=== PATIENT | female | born 1965 | race Caucasian/White ===

== ENCOUNTER 2022-08-31 16:06 | Emergency (ER) | payer MEDICAID, SELFPAY ==
[2022-08-31 16:17] VITALS: BP 136/81; PULSE 105; RESP 20; TEMP 36.7; O2SAT 98; BMI 31.8
--- NOTE | 2022-08-31 16:31 | HMH.EDGENADL ---
Discharge Plan Disposition Patient Disposition: Home, Self-Care Condition: Fair Prescriptions Prescriptions: New diclofenac sodium [Voltaren Arthritis Pain] 1 % gel 2 g topical QID Qty: 100 0RF Rx Instructions: apply to back Referrals Follow up/Referrals: Elvis Cueva MD [Primary Care Provider] - See instructions Clinical Impressions Clinical Impression: Chronic back pain Instructions Patient Instructions: DI for Low Back Pain Print Language Print Language: Italian Discharge ED Provider: Fredi Storey Adult HPI General Chief complaint: Back Pain/Injury Stated complaint: back pain Time Seen by Provider: 08/31/22 16:31 Mode of Arrival: EMS Source of Information: Patient Limitations: No Limitations Description of Symptoms (Recalled from ER Triage Doc. by RN): Patient reports right sided back pain. Patient reports she has had the pain since June. Patient denies any known injury. History of Present Illness HPI narrative: Patient reports right lumbar back pain since June. The patient reports that she has had this once in the past. She reports a history of degenerative disc disease. complaint: Back pain Onset (ago): month(s) (2) Radiation: non-radiation Severity: moderate Quality: dull Relieving factors: none Exacerbating factors: movement Associated symptoms: negative nausea/vomiting Related Data Previous Rx's Medication Instructions Recorded diclofenac sodium 1 % topical gel 2 g topical QID #100 grams 08/31/22 (Voltaren Arthritis Pain) Allergies Allergy/AdvReac Type Severity Reaction Status Date / Time Sulfa (Sulfonamide AdvReac Verified 08/31/22 17:09 Antibiotics) [facility] Disclaimer: The information contained in this section may have been updated after the patient was seen, as this information can be updated by other users. Social History Smoking Status: Never smoker alcohol intake: former current occupational status: unemployed Travel in the last 8 weeks: None ROS Obtained: Yes Systems reviewed as appropriate & no additional complaints except as documented Musculoskeletal Musculoskeletal: Reports back pain Physical Exam General General appearance: alert and in no apparent distress Eye Eye exam: Present EOMI ENT ENT exam: Present normal exam Respiratory Respiratory exam: Present normal lung sounds bilaterally; Absent respiratory distress Cardiovascular Cardiovascular exam: Present other (No edema) Neurological Exam Neurological exam: Present alert; Absent motor sensory deficit Psychiatric Psychiatric exam: Present normal affect and normal mood Skin Skin exam: Present warm and dry Medical Decision Making Ney Inquiry Pt receiving controlled substance: No Vital Signs: 08/31/22 16:17 08/31/22 16:43 08/31/22 17:36 Temperature 98.0 F 98.3 F Temperature Source Oral Oral Pulse Rate 96 H 92 H Pulse Rate [Right Brachial] 105 H Respiratory Rate 20 20 18 Blood Pressure 135/81 128/77 Blood Pressure [Right Arm] 136/81 Blood Pressure Mean 98 Blood Pressure Mean [Right Arm] 99 Blood Pressure Source Automatic Cuff Blood Pressure Source [Right Arm] Automatic Cuff Blood Pressure Position Sitting Blood Pressure Position [Right Arm] Sitting 02 Sat by Pulse Oximetry 98 94 L Oxygen Delivery Method Room Air Room Air Lab Data Lab results reviewed: Yes I reviewed the patient's lab results. Lab Results 08/31/22 16:52: Urine Color Yellow, Urine Appearance Clear, Urine pH 6.5, Ur Specific [place] <= 1.005, Urine Protein Negative, Urine Glucose (UA) Negative, Urine Ketones Negative, Urine Blood Negative, Urine Nitrate Negative, Urine Bilirubin Negative, Urine Urobilinogen 0.2, Ur Leukocyte Esterase Negative, Urine RBC None, Urine WBC None, Ur Squamous Epith Cells Occasional, Urine Bacteria None Orders (Tests/Meds): ED MEDICATIONS Discontinued Medications Generic Name Dose Route Start Last Admin
[2022-08-31 16:43] VITALS: BP 135/81; PULSE 96; RESP 20; O2SAT 94
--- NOTE | 2022-08-31 16:56 | PC.NURSE ---
ROUNDED ON PT SHE JUST ASKED FOR ME TO TELL ER SHE WANTED TO SPEAK WITH HIM BEFORE DISCHARGE
[2022-08-31 16:58] LABS: Microscopic, Urine URINE MICROSCOPIC (MICROSCOPIC)
[2022-08-31 17:01] LABS: Appearance,Urine CLEAR (Clear); Bilirubin,Urine Negative (Negative); Blood, Urine Negative (Negative); Color,Urine YELLOW (Yellow); Glucose,Urine (UA) Negative (Negative); Ketones,Urine Negative (Negative); Leukocyte Esterase,Urine Negative (Negative); Nitrate,Urine Negative (Negative); PH,Urine 6.5 (5.0-8.5); Protein,Urine Negative (Negative); Specific Gravity, Urine <= 1.005 (1.005-1.030); Urobilinogen,Urine 0.2 EU/dl (0.2)
[2022-08-31 17:26] LABS: Squamous Epithelial Cell,Urine Occasional #/hpf (0-5)
[2022-08-31 17:36] VITALS: BP 128/77; PULSE 92; RESP 18; TEMP 36.8; O2SAT 99
--- NOTE | 2022-08-31 17:37 | PC.NURSE ---
called [facility] for transport no answer
== END 2022-08-31 17:40 | disposition home or self-care (01) ==
PROVIDERS: Emergency Provider Emergency Medicine; PCP Emergency Medicine
DX: M54.50 Low back pain, unspecified (principal); M51.9 Unspecified thoracic, thoracolumbar and lumbosacral intervertebral disc disorder
CPT/HCPCS: 81001; 99283; 99284

== ENCOUNTER 2022-11-10 20:42 | Emergency (ER) | payer MEDICAID, SELFPAY ==
[2022-11-10 20:42] VITALS: BP 130/79; PULSE 97; RESP 19; TEMP 36.8; O2SAT 96; BMI 32.1
--- NOTE | 2022-11-10 20:43 | ECG_ITS ---
APPROVED REPORT Exam: Resting ECG HR:96 bpm ECG Measurements Heart Rate 96 AXES OR 145 P 65 QRSd 74 QRS 34 QT 315 T 71 QTc 369 Conclusion SINUS RHYTHM Late R wave progression ABNORMAL ECG UNCONFIRMED REPORT Electronically signed by : Bernardino Lobato MD 11/11/2022 19:57:26
--- NOTE | 2022-11-10 20:48 | XR_ITS ---
PROCEDURE INFORMATION: Exam: XR Chest Exam date and time: 11/10/2022 9:20 PM Age: 57 years old Clinical indication: Sternal or substernal pain; Additional info: Chest pain TECHNIQUE: Imaging protocol: Radiologic exam of the chest. Views: 1 view. COMPARISON: No relevant prior studies available. FINDINGS: Lungs: Unremarkable. No consolidation. Pleural spaces: Unremarkable. No pleural effusion. No pneumothorax. Heart/Mediastinum: Unremarkable. No cardiomegaly. Bones/joints: Unremarkable. IMPRESSION: No acute findings.
[2022-11-10 20:56] LABS: Basophils # 0.1 K/mm3 (0-0.2); Basophils % 0.8 % (0.1-2.0); Eosinophils # 0.5 K/mm3 (0.0-0.4); Eosinophils % 4.5 % (0.1-12.0); Hematocrit 45.1 % (37.0-47.0); Hemoglobin 14.4 g/dL (12.2-16.2); Lymphocytes # 4.9 K/mm3 (0.7-4.5); Lymphocytes % 44.5 % (10-50); Mean Corpuscular HGB Conc 31.9 g/dL (31.8-35.4); Mean Corpuscular Hemoglobin 30.5 pg (27.0-31.2); Mean Corpuscular Volume 95.6 fl (81-99); Mean Platelet Volume 8.2 fl (7.4-10.4); Monocytes # 0.7 K/mm3 (0.1-1.0); Monocytes % 6.3 % (1.7-9.3); Neutrophils # 4.8 K/mm3 (1.8-7.8); Neutrophils % 43.8 % (37.0-80.0); Platelet Count 247 K/mm3 (142-424); Red Blood Count 4.72 M/mm3 (4.20-5.40); White Blood Count 10.9 K/mm3 (4.8-10.8)
[2022-11-10 21:00] VITALS: BP 126/76; PULSE 89; RESP 25; O2SAT 94
[2022-11-10 21:04] LABS: Alanine Aminotransferase 23 U/L (12-78); Albumin Level 4.1 g/dl (3.5-5.0); Albumin/Globulin Ratio 1.2 (1.1-1.8); Alkaline Phosphatase 64 U/L (38-126); Anion Gap 11.6 mEq/L (5-15); Aspartate Amino Transferase 32 U/L (14-36); Bilirubin,Total 0.2 mg/dl (0.2-1.3); Blood Urea Nitrogen 25 mg/dl (7-17); Calcium 9.8 mg/dl (8.4-10.2); Carbon Dioxide 28 mmol/L (22.0-30.0); Chloride 102 mmol/L (98-107); Creatinine Clearance Estimated 51 mL/min (50-200); Estimated Glomerular Filt Rate 33 ml/min (>60); GFR (African American) 40 ML/MIN (>60); Globulin 3.5 g/dL (1.3-3.2); Glucose 123 mg/dl (74-100); Potassium 4.6 mmoL/L (3.5-5.1); Sodium 137 mmol/L (136-145); Total Protein,Serum 7.6 g/dl (6.3-8.2)
[2022-11-10 21:17] LABS: Troponin I < 0.01 ng/ml (0.00-0.034)
[2022-11-10 21:24] LABS: Microscopic, Urine URINE MICROSCOPIC (MICROSCOPIC)
[2022-11-10 21:26] LABS: Appearance,Urine CLEAR (Clear); Bilirubin,Urine Negative (Negative); Blood, Urine Negative (Negative); Color,Urine YELLOW (Yellow); Glucose,Urine (UA) Negative (Negative); Ketones,Urine Negative (Negative); Leukocyte Esterase,Urine Negative (Negative); Nitrate,Urine Negative (Negative); PH,Urine 6.5 (5.0-8.5); Protein,Urine Negative (Negative); Specific Gravity, Urine <= 1.005 (1.005-1.030); Urobilinogen,Urine 0.2 EU/dl (0.2)
[2022-11-10 21:30] VITALS: PULSE 88; RESP 24; O2SAT 95
[2022-11-10 21:35] LABS: Thyroid Stimulating Hormone 3.48 uIU/mL (0.465-4.68)
[2022-11-10 21:42] LABS: Squamous Epithelial Cell,Urine Occasional #/hpf (0-5)
[2022-11-10 21:45] VITALS: PULSE 86; RESP 23; O2SAT 95
--- NOTE | 2022-11-10 22:24 | PC.NURSE ---
patient requesting to leave
--- NOTE | 2022-11-10 22:29 | PC.NURSE ---
Patient states she is tired of waiting and ready to go back home. Patient denies wanting to stay for her continued workup. Patient denies any symptoms.
[2022-11-10 22:30] VITALS: BP 129/74; PULSE 89; RESP 19; TEMP 36.9; O2SAT 96
--- NOTE | 2022-11-10 22:33 | HMH.EDGENADL ---
Discharge Plan Disposition Patient Disposition: Left Against Medical Advice Prescriptions Prescriptions: No Action atorvastatin 80 mg Tablet 80 mg PO HS fluphenazine HCl 10 mg Tablet 10 mg PO BID docusate calcium 240 mg Capsule 240 mg PO HS olanzapine 5 mg Tablet 5 mg PO DAILY clopidogrel 75 mg Tablet 75 mg PO DAILY divalproex 500 mg Tablet,Delayed Release (Dr/Ec) 1,000 mg PO HS divalproex 500 mg Tablet,Delayed Release (Dr/Ec) 500 mg PO AM famotidine 20 mg Tablet 20 mg PO BID buspirone 10 mg Tablet 10 mg PO TID aspirin 81 mg Tablet,Chewable 81 mg PO DAILY mirtazapine 15 mg Tablet 15 mg PO HS fenofibrate 150 mg Capsule 150 mg PO DAILY Referrals Follow up/Referrals: Elvis Cueva MD [Primary Care Provider] - See instructions Clinical Impressions Clinical Impression: Left against medical advice, Acute exacerbation of chronic obstructive pulmonary disease (COPD), MORE (acute kidney injury) Discharge ED Provider: Yobani Vera General Adult HPI General Chief complaint: Chest Pain Stated complaint: CP Time Seen by Provider: 11/10/22 21:21 Mode of Arrival: EMS Source of Information: Patient and EMS Limitations: No Limitations Description of Symptoms (Recalled from ER Triage Doc. by RN): 57 F presents from [facility] via EMS with c/o mid sternal chest pain that has now resolved. Patient reports [place] and [place], which caused her chest pain. Patient reports this pain radiated to her back and caused her to be nauseated. Patient denies SOA, fever, or chills. History of Present Illness HPI narrative: 57-year-old female with history of COPD, currently smoking 1 pack/day, bipolar disorder, CAD, presenting with chest tightness. Patient states she was walking up a hill today when she felt short of breath. Stopped walking, felt better. No chest pain, nausea or vomiting, diaphoresis. Patient told triage nurse radiated to her back, patient states this is untrue and she did not mean that. Did not radiate to back, neck, arm, or anywhere else. Related Data Home Medications Medication Instructions Recorded Confirmed aspirin 81 mg chewable tablet 81 mg PO DAILY Heart Disease 11/10/22 11/10/22 atorvastatin 80 mg tablet 80 mg PO HS High Cholesterol 11/10/22 11/10/22 buspirone 10 mg tablet 10 mg PO TID Depression 11/10/22 11/10/22 clopidogrel 75 mg tablet 75 mg PO DAILY Antiplatelet 11/10/22 11/10/22 divalproex 500 mg tablet,delayed 1,000 mg PO HS Seizure 11/10/22 11/10/22 release divalproex 500 mg tablet,delayed 500 mg PO AM Seizure 11/10/22 11/10/22 release docusate calcium 240 mg capsule 240 mg PO HS Constipation 11/10/22 11/10/22 famotidine 20 mg tablet 20 mg PO BID Acid Reflux 11/10/22 11/10/22 fenofibrate 150 mg capsule 150 mg PO DAILY Hyperlipidemia 11/10/22 11/10/22 fluphenazine HCl 10 mg tablet 10 mg PO BID Schizophrenia 11/10/22 11/10/22 mirtazapine 15 mg tablet 15 mg PO HS Depression 11/10/22 11/10/22 olanzapine 5 mg tablet 5 mg PO DAILY Antipsychotic 11/10/22 11/10/22 Allergies Allergy/AdvReac Type Severity Reaction Status Date / Time carbamazepine Allergy Unknown Unknown Verified 11/10/22 21:02 allergy reaction codeine Allergy Unknown Unknown Verified 11/10/22 21:02 allergy reaction hydrocodone Allergy Unknown Unknown Verified 11/10/22 21:02 allergy reaction oxycodone Allergy Unknown Unknown Verified 11/10/22 21:02 allergy reaction promethazine Allergy Unknown Unknown Verified 11/10/22 21:02 allergy reaction propoxyphene Allergy Unknown Unknown Verified 11/10/22 21:02 allergy reaction PFSH PFSH Disclaimer: The information contained in this section may have been updated after the patient was seen, as this information can be updated by other users. Medical History Anxiety Bipolar 2 disorder, major depressive episode CAD (coronary artery
== END 2022-11-10 22:30 | disposition left against medical advice (07) ==
PROVIDERS: Emergency Provider Emergency Medicine; PCP Emergency Medicine
DX: R07.9 Chest pain, unspecified (principal); J44.1 Chronic obstructive pulmonary disease with (acute) exacerbation; N17.9 Acute kidney failure, unspecified; F41.9 Anxiety disorder, unspecified; F25.9 Schizoaffective disorder, unspecified; I25.10 Atherosclerotic heart disease of native coronary artery without angina pectoris; E78.5 Hyperlipidemia, unspecified; K21.9 Gastro-esophageal reflux disease without esophagitis; F17.200 Nicotine dependence, unspecified, uncomplicated
CPT/HCPCS: 71045; 80053; 81001; 83880; 84436; 84443; 84484; 85025; 93005; 96360; 99285

== ENCOUNTER 2023-01-01 00:48 | Emergency (ER) | payer MEDICAID, SELFPAY ==
[2023-01-01 00:48] VITALS: BP 122/87; PULSE 103; RESP 16; TEMP 36.7; O2SAT 95; BMI 35.9
--- NOTE | 2023-01-01 00:59 | HMH.EDGENADL ---
Discharge Plan Disposition Patient Disposition: Home, Self-Care Prescriptions Prescriptions: No Action atorvastatin 80 mg Tablet 80 mg PO HS fluphenazine HCl 10 mg Tablet 10 mg PO BID docusate calcium 240 mg Capsule 240 mg PO HS olanzapine 5 mg Tablet 5 mg PO DAILY clopidogrel 75 mg Tablet 75 mg PO DAILY divalproex 500 mg Tablet,Delayed Release (Dr/Ec) 1,000 mg PO HS divalproex 500 mg Tablet,Delayed Release (Dr/Ec) 500 mg PO AM famotidine 20 mg Tablet 20 mg PO BID buspirone 10 mg Tablet 10 mg PO TID aspirin 81 mg Tablet,Chewable 81 mg PO DAILY mirtazapine 15 mg Tablet 15 mg PO HS fenofibrate 150 mg Capsule 150 mg PO DAILY Referrals Follow up/Referrals: Provider,Referral, MD [Referring] - See instructions Activity Restrictions/Add. Instructions Additional Instructions/Restrictions: Please follow-up with your primary care provider. Please return to the emergency department if you develop any new or worsening symptoms or become concerned for your health. Clinical Impressions Clinical Impression: Folliculitis Instructions Patient Instructions: DI for Laceration Repair Discharge ED Provider: Usman Geiger General Adult HPI General Chief complaint: Wound/Laceration Stated complaint: groin pain Time Seen by Provider: 01/01/23 00:50 History of Present Illness HPI narrative: 57-year-old female, history as reported below, resident at [facility], presents with concern for soft tissue issue in her left groin. She reports that she started having pain and tenderness in her left groin yesterday. She reports that she cleaned it heavily in the shower earlier today. She reports that she has had some worsening pain which is causing her to present. Also reports some urinary urgency and mild suprapubic pelvic pain. Denies any fever, denies any dysuria. Orts she is concerned for UTI. Related Data Home Medications Medication Instructions Recorded Confirmed aspirin 81 mg chewable tablet 81 mg PO DAILY Heart Disease 11/10/22 11/10/22 atorvastatin 80 mg tablet 80 mg PO HS High Cholesterol 11/10/22 11/10/22 buspirone 10 mg tablet 10 mg PO TID Depression 11/10/22 11/10/22 clopidogrel 75 mg tablet 75 mg PO DAILY Antiplatelet 11/10/22 11/10/22 divalproex 500 mg tablet,delayed 1,000 mg PO HS Seizure 11/10/22 11/10/22 release divalproex 500 mg tablet,delayed 500 mg PO AM Seizure 11/10/22 11/10/22 release docusate calcium 240 mg capsule 240 mg PO HS Constipation 11/10/22 11/10/22 famotidine 20 mg tablet 20 mg PO BID Acid Reflux 11/10/22 11/10/22 fenofibrate 150 mg capsule 150 mg PO DAILY Hyperlipidemia 11/10/22 11/10/22 fluphenazine HCl 10 mg tablet 10 mg PO BID Schizophrenia 11/10/22 11/10/22 mirtazapine 15 mg tablet 15 mg PO HS Depression 11/10/22 11/10/22 olanzapine 5 mg tablet 5 mg PO DAILY Antipsychotic 11/10/22 11/10/22 Allergies Allergy/AdvReac Type Severity Reaction Status Date / Time carbamazepine Allergy Unknown Unknown Verified 11/10/22 21:02 allergy reaction codeine Allergy Unknown Unknown Verified 11/10/22 21:02 allergy reaction hydrocodone Allergy Unknown Unknown Verified 11/10/22 21:02 allergy reaction oxycodone Allergy Unknown Unknown Verified 11/10/22 21:02 allergy reaction promethazine Allergy Unknown Unknown Verified 11/10/22 21:02 allergy reaction propoxyphene Allergy Unknown Unknown Verified 11/10/22 21:02 allergy reaction PFSH PFSH Disclaimer: The information contained in this section may have been updated after the patient was seen, as this information can be updated by other users. Medical History Anxiety Bipolar 2 disorder, major depressive episode CAD (coronary artery disease) Constipation Depression GERD without esophagitis Hypercholesteremia Hyperlipidemia Schizo affective schizophrenia Smoker Surgical History (Updated 10/24
[2023-01-01 01:02] LABS: Appearance,Urine CLEAR (Clear); Bilirubin,Urine Negative (Negative); Blood, Urine Negative (Negative); Color,Urine YELLOW (Yellow); Glucose,Urine (UA) Negative (Negative); Ketones,Urine Negative (Negative); Leukocyte Esterase,Urine Negative (Negative); Nitrate,Urine Negative (Negative); PH,Urine 6.5 (5.0-8.5); Protein,Urine Negative (Negative); Specific Gravity, Urine <= 1.005 (1.005-1.030); Urobilinogen,Urine 0.2 EU/dl (0.2)
[2023-01-01 01:03] LABS: Microscopic, Urine URINE MICROSCOPIC (MICROSCOPIC)
[2023-01-01 01:18] LABS: Bacteria,Urine Trace /lpf; WBC,Urine Occasional #/hpf (0-3)
[2023-01-01 02:25] VITALS: BP 122/87; PULSE 103; RESP 16; TEMP 36.9; O2SAT 95
== END 2023-01-01 02:27 | disposition home or self-care (01) ==
PROVIDERS: Emergency Provider Emergency Medicine; PCP Emergency Medicine
DX: L73.9 Follicular disorder, unspecified (principal); R10.2 Pelvic and perineal pain; F17.210 Nicotine dependence, cigarettes, uncomplicated; I25.10 Atherosclerotic heart disease of native coronary artery without angina pectoris; K21.9 Gastro-esophageal reflux disease without esophagitis; E78.5 Hyperlipidemia, unspecified; F31.81 Bipolar II disorder; F25.8 Other schizoaffective disorders
CPT/HCPCS: 81001; 99283

== ENCOUNTER 2023-01-30 01:32 | Emergency (ER) | payer MEDICAID, SELFPAY ==
[2023-01-30] VITALS (13 sets, daily range): BP systolic 108–132; BP diastolic 55–89; PULSE 78–95; RESP 18–20; TEMP 36.7; O2SAT 92–98; BMI 35.9
--- NOTE | 2023-01-30 01:35 | ECG_ITS ---
APPROVED REPORT Exam: Resting ECG HR:95 bpm ECG Measurements Heart Rate 95 AXES OR 146 P 67 QRSd 77 QRS 18 QT 326 T 67 QTc 378 Conclusion SINUS RHYTHM NORMAL ECG UNCONFIRMED REPORT Electronically signed by : Bernardino Lobato MD 01/30/2023 08:26:36
--- NOTE | 2023-01-30 01:35 | XR_ITS ---
PROCEDURE INFORMATION: Exam: XR Chest Exam date and time: 01/30/2023 2:01 AM Age: 57 years old Clinical indication: Sternal or substernal pain; Additional info: Cp TECHNIQUE: Imaging protocol: Radiologic exam of the chest. Views: 1 view. COMPARISON: CR XR CHEST PORTABLE 11/10/2022 9:20 PM FINDINGS: Lungs: No evidence of acute pulmonary disease or infiltrates; lung sales appear clear. Pleural spaces: No evidence of pleural effusion, pneumothorax, or pleural thickening in the visualized pleural spaces. Heart/Mediastinum: No evidence of mediastinal widening or cardiac silhouette enlargement; the mediastinum and heart appear within normal limits for contour and size. Diaphragm: There is elevation of the right hemidiaphragm. Bones/joints: No evidence of acute osseous abnormalities within the visualized portions of the thoracic spine and ribs. Osseous structures appear appropriate for patient age. IMPRESSION: No dense parenchymal consolidation, pleural effusion, or pneumothorax.
--- NOTE | 2023-01-30 01:36 | HMH.EDGENADL ---
Discharge Plan Disposition Patient Disposition: Home, Self-Care Condition: Good Chief Complaint: Chest Pain Prescriptions Prescriptions: No Action atorvastatin 80 mg Tablet 80 mg PO HS fluphenazine HCl 10 mg Tablet 10 mg PO BID docusate calcium 240 mg Capsule 240 mg PO HS olanzapine 5 mg Tablet 5 mg PO DAILY clopidogrel 75 mg Tablet 75 mg PO DAILY divalproex 500 mg Tablet,Delayed Release (Dr/Ec) 1,000 mg PO HS divalproex 500 mg Tablet,Delayed Release (Dr/Ec) 500 mg PO AM famotidine 20 mg Tablet 20 mg PO BID buspirone 10 mg Tablet 10 mg PO TID aspirin 81 mg Tablet,Chewable 81 mg PO DAILY mirtazapine 15 mg Tablet 15 mg PO HS fenofibrate 150 mg Capsule 150 mg PO DAILY Referrals Follow up/Referrals: Provider,Referral, MD [Primary Care Provider] - See instructions Clinical Impressions Clinical Impression: Chest pain Instructions Patient Instructions: DI for Atypical Chest Pain Discharge ED Provider: Thee Beltran General Adult HPI General Chief complaint: Chest Pain Stated complaint: chest pain Time Seen by Provider: 01/30/23 01:38 History of Present Illness HPI narrative: Patient has a PMHx significant for CAD status post PCI at on Plavix, anxiety, depression, COPD who presents to the ED with complaints of chest pain. [facility], apparently when the patient laid down to go to bed, she started having chest pain. Patient notes that when she sat up in bed the chest pain went away. Patient notes that when she laid back down, she had recurrence of chest pain and thus decided to alert staff with subsequently called EMS. Patient notes a significant cardiac history and was supposed get a heart cath done, but has never had follow-up with cardiology ever since she apparently moved. Patient denies any chest pain at this time. Related Data Home Medications Medication Instructions Recorded Confirmed aspirin 81 mg chewable tablet 81 mg PO DAILY Heart Disease 11/10/22 11/10/22 atorvastatin 80 mg tablet 80 mg PO HS High Cholesterol 11/10/22 11/10/22 buspirone 10 mg tablet 10 mg PO TID Depression 11/10/22 11/10/22 clopidogrel 75 mg tablet 75 mg PO DAILY Antiplatelet 11/10/22 11/10/22 divalproex 500 mg tablet,delayed 1,000 mg PO HS Seizure 11/10/22 11/10/22 release divalproex 500 mg tablet,delayed 500 mg PO AM Seizure 11/10/22 11/10/22 release docusate calcium 240 mg capsule 240 mg PO HS Constipation 11/10/22 11/10/22 famotidine 20 mg tablet 20 mg PO BID Acid Reflux 11/10/22 11/10/22 fenofibrate 150 mg capsule 150 mg PO DAILY Hyperlipidemia 11/10/22 11/10/22 fluphenazine HCl 10 mg tablet 10 mg PO BID Schizophrenia 11/10/22 11/10/22 mirtazapine 15 mg tablet 15 mg PO HS Depression 11/10/22 11/10/22 olanzapine 5 mg tablet 5 mg PO DAILY Antipsychotic 11/10/22 11/10/22 Allergies Allergy/AdvReac Type Severity Reaction Status Date / Time carbamazepine Allergy Unknown Unknown Verified 11/10/22 21:02 allergy reaction codeine Allergy Unknown Unknown Verified 11/10/22 21:02 allergy reaction hydrocodone Allergy Unknown Unknown Verified 11/10/22 21:02 allergy reaction oxycodone Allergy Unknown Unknown Verified 11/10/22 21:02 allergy reaction promethazine Allergy Unknown Unknown Verified 11/10/22 21:02 allergy reaction propoxyphene Allergy Unknown Unknown Verified 11/10/22 21:02 allergy reaction PFSH PFSH Disclaimer: The information contained in this section may have been updated after the patient was seen, as this information can be updated by other users. Medical History Anxiety Bipolar 2 disorder, major depressive episode CAD (coronary artery disease) Constipation Depression GERD without esophagitis Hypercholesteremia Hyperlipidemia Schizo affective schizophrenia Smoker Surgical History (Updated 11/10/22 @ 21:28 by Indra
[2023-01-30 01:43] LABS: Basophils # 0.1 K/mm3 (0-0.2); Eosinophils # 0.5 K/mm3 (0.0-0.4); Hematocrit 43.5 % (37.0-47.0); Hemoglobin 14.8 g/dL (12.2-16.2); Lymphocytes # 5.2 K/mm3 (0.7-4.5); Lymphocytes % 47.3 % (10-50); Mean Corpuscular HGB Conc 34.1 g/dL (31.8-35.4); Mean Corpuscular Hemoglobin 33.2 pg (27.0-31.2); Mean Corpuscular Volume 97.4 fl (81-99); Mean Platelet Volume 8.2 fl (7.4-10.4); Monocytes # 0.7 K/mm3 (0.1-1.0); Monocytes % 6.2 % (1.7-9.3); Neutrophils # 4.6 K/mm3 (1.8-7.8); Neutrophils % 41.5 % (37.0-80.0); Platelet Count 218 K/mm3 (142-424); Red Blood Count 4.47 M/mm3 (4.20-5.40); White Blood Count 11.1 K/mm3 (4.8-10.8)
[2023-01-30 01:50] LABS: Alanine Aminotransferase 24 U/L (12-78); Albumin Level 4.2 g/dl (3.5-5.0); Albumin/Globulin Ratio 1.3 (1.1-1.8); Alkaline Phosphatase 62 U/L (38-126); Aspartate Amino Transferase 37 U/L (14-36); Bilirubin,Total 0.3 mg/dl (0.2-1.3); Blood Urea Nitrogen 20 mg/dl (7-17); Calcium 9.2 mg/dl (8.4-10.2); Carbon Dioxide 24 mmol/L (22.0-30.0); Chloride 106 mmol/L (98-107); Creatinine Clearance Estimated 55 mL/min (50-200); Estimated Glomerular Filt Rate 33 ml/min (>60); GFR (African American) 40 ML/MIN (>60); Globulin 3.2 g/dL (1.3-3.2); Glucose 123 mg/dl (74-100); Sodium 136 mmol/L (136-145); Total Protein,Serum 7.4 g/dl (6.3-8.2)
[2023-01-30 02:03] LABS: Troponin I < 0.01 ng/ml (0.00-0.034)
--- NOTE | 2023-01-30 03:16 | PC.NURSE ---
Patient is ready for discharge; however, after speaking to Vadim Luis they have informed us that they do not have transportation for her until after shift change this morning. Attending and primary RN made aware. Patient will remain here as a patient until transportation is arranged.
--- NOTE | 2023-01-30 07:42 | PC.NURSE ---
called [facility], no answer
--- NOTE | 2023-01-30 08:01 | PC.NURSE ---
called [facility] they didnt know if they had anyone to come get her, she would call back.
--- NOTE | 2023-01-30 08:11 | PC.NURSE ---
kathya [place] called [facility] they advised someone would be here in 10-15 min.
--- NOTE | 2023-01-30 08:11 | SW/DCPLANNER ---
Per Phylicia slater/ [facility] Luis someone will be to [facility] within the next 10-15 minutes to transport this patient.
== END 2023-01-30 08:28 | disposition home or self-care (01) ==
PROVIDERS: Emergency Provider Emergency Medicine
DX: R07.9 Chest pain, unspecified (principal); I25.10 Atherosclerotic heart disease of native coronary artery without angina pectoris; J44.9 Chronic obstructive pulmonary disease, unspecified; F41.9 Anxiety disorder, unspecified; F32.A Depression, unspecified; E78.5 Hyperlipidemia, unspecified; F25.9 Schizoaffective disorder, unspecified; Z79.02 Long term (current) use of antithrombotics/antiplatelets; F17.200 Nicotine dependence, unspecified, uncomplicated
CPT/HCPCS: 71045; 80053; 84484; 85025; 93005; 99285

== ENCOUNTER 2023-03-20 18:37 | Emergency (ER) | payer MEDICAID, SELFPAY ==
[2023-03-20 18:38] VITALS: BP 140/79; PULSE 108; RESP 18; TEMP 37.1; O2SAT 93; BMI 34.5
--- NOTE | 2023-03-20 19:04 | XR_ITS ---
PROCEDURE INFORMATION: Exam: XR Chest Exam date and time: 03/20/2023 7:13 PM Age: 58 years old Clinical indication: Cough; Additional info: SOA, cough TECHNIQUE: Imaging protocol: Radiologic exam of the chest. Views: 2 views. COMPARISON: CR XR CHEST PORTABLE 01/30/2023 2:01 AM FINDINGS: Lungs: Subtle interstitial haziness could reflect interstitial pneumonia. No consolidation. Pleural spaces: Unremarkable. No pleural effusion. No pneumothorax. Heart/Mediastinum: Unremarkable. No cardiomegaly. Bones/joints: Unremarkable. IMPRESSION: Subtle interstitial haziness could reflect interstitial pneumonia.
[2023-03-20 19:18] LABS: Coronavirus 19, PCR Not Detected (NotDetected); Influenza A, PCR Not Detected (NotDetected); Influenza B, PCR Not Detected (NotDetected)
[2023-03-20 19:19] LABS: Basophils # 0.1 K/mm3 (0-0.2); Basophils % 0.5 % (0.1-2.0); Eosinophils # 0.3 K/mm3 (0.0-0.4); Eosinophils % 3.1 % (0.1-12.0); Hematocrit 41.3 % (37.0-47.0); Hemoglobin 13.6 g/dL (12.2-16.2); Lymphocytes # 3.1 K/mm3 (0.7-4.5); Lymphocytes % 29.5 % (10-50); Mean Corpuscular Hemoglobin 32.2 pg (27.0-31.2); Mean Corpuscular Volume 97.6 fl (81-99); Monocytes # 0.5 K/mm3 (0.1-1.0); Monocytes % 5.1 % (1.7-9.3); Neutrophils # 6.4 K/mm3 (1.8-7.8); Neutrophils % 61.7 % (37.0-80.0); Platelet Count 236 K/mm3 (142-424); Red Blood Count 4.23 M/mm3 (4.20-5.40); Red Cell Distribution Width 14.2 % (11.5-17.5); White Blood Count 10.3 K/mm3 (4.8-10.8)
--- NOTE | 2023-03-20 19:20 | ECG_ITS ---
APPROVED REPORT Exam: Resting ECG HR:101 bpm ECG Measurements Heart Rate 101 AXES PA 139 P 65 QRSd 83 QRS 38 QT 323 T 64 QTc 381 Conclusion SINUS TACHYCARDIA ABNORMAL RHYTHM ECG UNCONFIRMED REPORT Electronically signed by : Bernardino Lobato MD 03/21/2023 13:38:00
--- NOTE | 2023-03-20 19:23 | PC.NURSE ---
patient to radiology
[2023-03-20 19:26] LABS: Alanine Aminotransferase 21 U/L (12-78); Albumin Level 3.8 g/dl (3.5-5.0); Albumin/Globulin Ratio 1.1 (1.1-1.8); Alkaline Phosphatase 67 U/L (38-126); Anion Gap 9.3 mEq/L (5-15); Aspartate Amino Transferase 28 U/L (14-36); Bilirubin,Total 0.3 mg/dl (0.2-1.3); Blood Urea Nitrogen 17 mg/dl (7-17); Carbon Dioxide 29 mmol/L (22.0-30.0); Chloride 106 mmol/L (98-107); Creatinine Clearance Estimated 60 mL/min (50-200); Estimated Glomerular Filt Rate 38 ml/min (>60); GFR (African American) 46 ML/MIN (>60); Globulin 3.5 g/dL (1.3-3.2); Glucose 135 mg/dl (74-100); Potassium 4.3 mmoL/L (3.5-5.1); Sodium 140 mmol/L (136-145); Total Protein,Serum 7.3 g/dl (6.3-8.2)
--- NOTE | 2023-03-20 19:29 | PC.NURSE ---
patient return from rad. RT at bedside for duoneb
[2023-03-20 19:30] VITALS: BP 128/77; PULSE 107; O2SAT 90
[2023-03-20 19:31] LABS: D-Dimer 0.52 ug/mL (0.0-0.5)
[2023-03-20] MEDS: IPRATROPIUM/ALBUTEROL 3 ML NEB 6 ML IH (19:31)
[2023-03-20 19:40] LABS: NT Pro Brain Natriuretic Pep. 41.4 pg/mL (0-125)
--- NOTE | 2023-03-20 19:43 | ED_ITS ---
Discharge Plan Disposition Patient Disposition: Home, Self-Care Condition: Good Prescriptions Prescriptions: New doxycycline hyclate 100 mg capsule 100 mg PO BID 14 Days Qty: 28 0RF prednisone 50 mg tablet 50 mg PO DAILY 5 Days Qty: 5 0RF albuterol sulfate 90 mcg/actuation aerosol powdr breath activated 1 inh inhalation Q4H PRN (Reason: shortness of breath or wheezing) Qty: 1 0RF No Action atorvastatin 80 mg Tablet 80 mg PO HS fluphenazine HCl 10 mg Tablet 10 mg PO BID docusate calcium 240 mg Capsule 240 mg PO HS olanzapine 5 mg Tablet 5 mg PO DAILY clopidogrel 75 mg Tablet 75 mg PO DAILY divalproex 500 mg Tablet,Delayed Release (Dr/Ec) 1,000 mg PO HS divalproex 500 mg Tablet,Delayed Release (Dr/Ec) 500 mg PO AM famotidine 20 mg Tablet 20 mg PO BID buspirone 10 mg Tablet 10 mg PO TID aspirin 81 mg Tablet,Chewable 81 mg PO DAILY mirtazapine 15 mg Tablet 15 mg PO HS fenofibrate 150 mg Capsule 150 mg PO DAILY Referrals Follow up/Referrals: Provider,Referral, MD [Primary Care Provider] - See instructions Activity Restrictions/Add. Instructions Additional Instructions/Restrictions: You were evaluated in the emergency department today. Please vegetable picker your prescriptions department and take them as prescribed. Make sure that you are staying hydrated. Follow-up with your primary care provider over the next 3 days. Return to the emergency department for new or worsening symptoms. Clinical Impressions Clinical Impression: Pneumonia, Acute exacerbation of chronic obstructive pulmonary disease Instructions Patient Instructions: DI for Chronic Obstructive Pulmonary Disease, DI for Pneumonia -- Adult Discharge ED Provider: Vikki Cha General Adult HPI General Chief complaint: Weakness Stated complaint: soa Time Seen by Provider: 03/20/23 18:39 Mode of Arrival: EMS Source of Information: Patient and EMS Limitations: No Limitations Description of Symptoms (Recalled from ER Triage Doc. by RN): Patient reports she has been having difficulty taking a breath for 2 weeks and weakness for 8 months. States she does not have energy to get up somedays. History of Present Illness HPI narrative: This patient is a 58-year-old female [facility], COPD, CAD, hyperlipidemia, and chronic pain presenting to the emergency department for evaluation with concern for fatigue and weakness for approximately 8 months. She states that she does not have energy and it takes a lot of effort for her to get out of her room and go get breakfast and lunch most days. She states that she also feels like she has had trouble getting a full deep breath in over the last 2 weeks. No other concerns noted, such as chest pain, abdominal pain, fevers, chills, nausea, vomiting, changes in bowel movements, or other concerns. No calf pain or swelling. No history of blood clots or clotting disorders. Related Data Home Medications Medication Instructions Recorded Confirmed aspirin 81 mg chewable tablet 81 mg PO DAILY Heart Disease 11/10/22 11/10/22 atorvastatin 80 mg tablet 80 mg PO HS High Cholesterol 11/10/22 11/10/22 buspirone 10 mg tablet 10 mg PO TID Depression 11/10/22 11/10/22 clopidogrel 75 mg tablet 75 mg PO DAILY Antiplatelet 11/10/22 11/10/22 divalproex 500 mg tablet,delayed 1,000 mg PO HS Seizure 11/10/22 11/10/22 release divalproex 500 mg tablet,delayed 500 mg PO AM Seizure 11/10/22 11/10/22 release docusate calcium 240 mg capsule 240 mg PO HS Constipation 11/10/22 11/10/22 famotidine 20 mg tablet 20 mg PO BID Acid Reflux 11/10/22 11/10/22 fenofibrate 150 mg capsule 150 mg PO DAILY Hyperlipidemia 11/10/22 11/10/22 fluphenazine HCl 10 mg tablet 10 mg PO BID Schizophrenia 11/10/22 11/10/22 mirtazapine 15 mg tablet 15 mg PO HS Depression 11/10/22 11/10/22 olanzapine 5 mg tablet 5 mg PO DAILY Antipsychotic 11/10/22 11/10/22 Previous Rx's Medication Instructions Recorded albuterol sulfate 90 mcg/actuation 1 inh inhalation Q4H PRN shortness 03/20/23 breath activated powder inhaler of breath or wheezing #1 ea doxycycline hyclate 100 mg capsule 100 mg PO BID 14 days #28 caps 03/20/23 prednisone 50 mg tablet 50 mg PO DAILY 5 days #5 tabs 03/20/23 Allergies Allergy/AdvReac Type Severity Reaction Status Date / Time carbamazepine Allergy Unknown Unknown Verified 11/10/22 21:02 allergy reaction codeine Allergy Unknown Unknown Verified 11/10/22 21:02 allergy reaction hydrocodone Allergy Unknown Unknown Verified 11/10/22 21:02 allergy reaction oxycodone Allergy Unknown Unknown Verified 11/10/22 21:02 allergy reaction promethazine Allergy Unknown Unknown Verified 11/10/22 21:02 allergy reaction propoxyphene Allergy Unknown Unknown Verified 11/10/22 21:02 allergy reaction PFSH PFS Disclaimer: The information contained in this section may have been updated after the patient was seen, as this information can be updated by other users. Medical History Anxiety Bipolar 2 disorder, major depressive episode CAD (coronary artery disease) Constipation Depression GERD without esophagitis Hypercholesteremia Hyperlipidemia Schizo affective schizophrenia Smoker Surgical History H/O hysterectomy with oophorectomy History of cholecystectomy History of heart artery stent Hx of appendectomy Family History Other No significant family history Social History Smoking Status: Current every day smoker alcohol intake: former current occupational status: unemployed and disabled Travel in the last 8 weeks: None ROS Obtained: Yes All systems reviewed & no additional complaints except as documented Physical Exam General General appearance: alert and in no apparent distress Head Head exam: atraumatic and normocephalic Eye Eye exam: Present normal appearance, PERRL and EOMI ENT ENT exam: Present normal exam, normal oropharynx, mucous membranes moist and normal external ear exam Neck Neck exam: Present normal inspection, full ROM and trachea midline; Absent tenderness Chest Chest inspection: Present normal inspection and symmetric chest wall rise; Absent tenderness Respiratory Respiratory exam: Present wheezes, prolonged expiratory phase and other (wheezing heard, L>R. No increased work of breathing.); Absent respiratory distress, stridor or accessory muscle use Cardiovascular Cardiovascular exam: Present normal rhythm and tachycardia Abdominal Exam Abdominal exam: Present soft; Absent distention, tenderness or guarding Extremities Exam Extremities exam: Present normal inspection, full ROM and normal capillary refill; Absent tenderness or edema Back Exam Back exam: Present normal inspection and full ROM; Absent tenderness Neurological Exam Neurological exam: Present alert, oriented X3, CN II-XII intact and normal gait; Absent motor sensory deficit Psychiatric Psychiatric exam: Present normal affect and normal mood Skin Skin exam: Present warm and dry Medical Decision Making Medical Records Medical records reviewed: Yes I reviewed the patient's medical records. Ney Inquiry Pt receiving controlled substance: No Vital Signs: 03/20/23 18:38 03/20/23 19:45 03/20/23 19:45 Temperature 98.8 F Temperature Source Oral Pulse Rate 105 H 98 H Pulse Rate [Right] 108 H Respiratory Rate 18 Blood Pressure Blood Pressure [Right Arm] 140/79 Blood Pressure Mean [Right Arm] 99 Blood Pressure Source [Right Arm] Automatic Cuff 02 Sat by Pulse Oximetry 93 L Oxygen Delivery Method Room Air 03/20/23 19:30 Temperature Temperature Source Pulse Rate 107 H Pulse Rate [Right] Respiratory Rate Blood Pressure 128/77 Blood Pressure [Right Arm] Blood Pressure Mean [Right Arm] Blood Pressure Source [Right Arm] 02 Sat by Pulse Oximetry 90 L Oxygen Delivery Method Room Air Lab Data Lab results reviewed: Yes I reviewed the patient's lab results. Lab Results 03/20/23 19:10: WBC 10.3, RBC 4.23, Hgb 13.6, Hct 41.3, MCV 97.6, MCH 32.2 H, MCHC 33.0, RDW 14.2, Plt Count 236, MPV 8.0, Neut % (Auto) 61.7, Lymph % (Auto) 29.5, [place] % (Auto) 5.1, Eos % (Auto) 3.1, Baso % (Auto) 0.5, Neut # (Auto) 6.4, Lymph # (Auto) 3.1, [place] # (Auto) 0.5, Eos # (Auto) 0.3, Baso # (Auto) 0.1, D- Dimer 0.52 H, Sodium 140, Potassium 4.3, Chloride 106, Carbon Dioxide 29, Anion Gap 9.3, BUN 17, Creatinine 1.40 H, Estimated Creat Clear 60, Estimated GFR 38 L , Est GFR ( Amer) 46 L, Glucose 135 H, Calcium 10.0, Total Bilirubin 0.3, AST 28, ALT 21, Alkaline Phosphatase 67, Troponin I < 0.01, NT-Pro-B Natriuret Pep 41.4, Total Protein 7.3, Albumin 3.8, Globulin 3.5 H, Albumin/Globulin Ratio 1.1, TSH 1.38, Thyroxine (T4) 7.8 03/20/23 19:16: SARS-CoV-2 (PCR) Not detected, Influenza A Untype (PCR) Not detected, Influenza Type B (PCR) Not detected 03/20/23 19:10 03/20/23 19:10 Orders (Tests/Meds): ED MEDICATIONS Discontinued Medications Generic Name Dose Route Start Last Admin Trade Name Freq PRN Reason Stop Dose Admin Albuterol/Ipratropium 6 ml 03/20/23 19:05 03/20/23 19:31 Ipratropium/Albuterol 3 Ml Neb IH 03/20/23 19:06 6 ml ONCE ONE Administration Doxycycline Hyclate 100 mg/ 250 mls @ 166.667 mls/hr 03/20/23 19:55 03/20/23 20:09 Sodium Chloride IV 03/20/23 19:56 166.667 mls/hr ONCE ONE Administration Prednisone 60 mg 03/20/23 19:55 Prednisone 20mg Tab PO 03/20/23 19:56 ONCE ONE ORDERS Category Date Time Status CXR 2 view (NOT portable) [XR chest 2V] Stat Exams 03/20/23 19:04 Completed Brain Natriuretic Peptide Stat Lab 03/20/23 19:10 Completed Complete Blood Count Auto Diff Stat Lab 03/20/23 19:10 Completed Comprehensive Metabolic Panel Stat Lab 03/20/23 19:10 Completed D-Dimer Stat Lab 03/20/23 19:10 Completed Rapid PCR Covid and Flu A/B Stat Lab 03/20/23 19:16 Completed T4 (Thyroxine) Stat Lab 03/20/23 19:10 Completed Thyroid Stimulating Hormone Stat Lab 03/20/23 19:10 Completed Troponin I Q3H Lab 03/20/23 22:15 Ordered Troponin I Q3H Lab 03/21/23 01:15 Ordered Troponin I Stat Lab 03/20/23 19:10 Completed ECG Data Tracing #1: I reviewed this ECG and interpreted as documented below: Sinus tachycardia with a ventricular rate of [address] changes concerning for ischemia. ECG initial impression date: 03/20/23 ECG initial impression time: 19:21 Medical Decision Narrative: In summary, this patient is a 58-year-old female presenting to the Emergency Department for evaluation of generalized weakness, fatigue, and difficulty getting a full breath. Differential diagnoses considered include but are not limited to COPD exacerbation, CHF exacerbation, pneumonia, viral syndrome, respiratory failure, PE, ACS. Ruling out the most morbid conditions drove [place]. On exam, the patient is well-appearing. She has mild sinus tachycardia and an oxygen saturation of 91% on room air. She does have wheezing in the setting of COPD. She was given a DuoNeb to assess for symptomatic improvement. Workup included CBC, CMP, TSH, T4, troponin, BNP, and D-dimer as well as chest x-ray and EKG. D-dimer is negative per years criteria. Labs otherwise reassuring. I independently interpreted XR prior to the radiologist read and noted concerns for developing pneumonia. Please see their read for final interpretation. Patient given IV doxycycline and oral prednisone given pneumonia + COPD exacerbation. Patient states that the steroids make her crazy, so this was not administered. At this time, feel that she is appropriate for discharge given that she is resting comfortably with no increased work of breathing on room air. She is given strict return precautions and was discharged back to [facility] in stable condition. Critical Care Critical Care Time Critical Care Time: No
[2023-03-20 19:45] VITALS: PULSE 105; PULSE 98
[2023-03-20 19:45] LABS: T4 (Thyroxine) 7.8 ug/dl (5.53-11.0)
[2023-03-20 19:54] LABS: Troponin I < 0.01 ng/ml (0.00-0.034)
[2023-03-20 19:58] LABS: Thyroid Stimulating Hormone 1.38 uIU/mL (0.465-4.68)
[2023-03-20] MEDS: DOXYCYCLINE HYCLATE 100 MG in 0.9 % SODIUM CHLORIDE 250 ML 166.667000000000002 MG IV (20:09)
[2023-03-20] MEDS: ACETAMINOPHEN 500MG TAB 1000 MG PO (21:33)
[2023-03-20 21:50] VITALS: BP 131/69; PULSE 105; RESP 18; TEMP 36.7; O2SAT 90
--- NOTE | 2023-03-20 21:50 | PC.NURSE ---
[facility] notified that pt. is ready for discharge
== END 2023-03-20 22:03 | disposition home or self-care (01) ==
PROVIDERS: Emergency Provider Emergency Medicine
DX: J44.1 Chronic obstructive pulmonary disease with (acute) exacerbation (principal); J18.9 Pneumonia, unspecified organism; R06.02 Shortness of breath; R53.1 Weakness; R53.83 Other fatigue; R00.0 Tachycardia, unspecified; I25.10 Atherosclerotic heart disease of native coronary artery without angina pectoris; E78.5 Hyperlipidemia, unspecified; F25.0 Schizoaffective disorder, bipolar type; K21.9 Gastro-esophageal reflux disease without esophagitis; F17.200 Nicotine dependence, unspecified, uncomplicated
CPT/HCPCS: 71046; 80053; 83880; 84436; 84443; 84484; 85025; 85378; 87636; 93005; 96374; 99285

== ENCOUNTER 2023-03-26 01:33 | Emergency (ER) | payer MEDICAID, SELFPAY ==
[2023-03-26 01:33] VITALS: BP 137/82; PULSE 113; RESP 20; TEMP 36.8; O2SAT 95; BMI 35.9
--- NOTE | 2023-03-26 01:50 | HMH.EDGENADL ---
Discharge Plan Disposition Patient Disposition: Home, Self-Care Condition: Good Prescriptions Prescriptions: New amoxicillin-pot clavulanate 875-125 mg tablet 1 tab PO BID Qty: 14 0RF azithromycin 250 mg tablet See Rx Instructions .ROUTE .COMPLEX Qty: 6 0RF Rx Instructions: For 250 mg dose pack: take 500 mg today (day 1), then 250 mg for 4 days (days 2-5) No Action doxycycline hyclate 100 mg capsule 100 mg PO BID 14 Days Qty: 28 0RF prednisone 50 mg tablet 50 mg PO DAILY 5 Days Qty: 5 0RF albuterol sulfate 90 mcg/actuation aerosol powdr breath activated 1 inh inhalation Q4H PRN (Reason: shortness of breath or wheezing) Qty: 1 0RF atorvastatin 80 mg Tablet 80 mg PO HS fluphenazine HCl 10 mg Tablet 10 mg PO BID docusate calcium 240 mg Capsule 240 mg PO HS olanzapine 5 mg Tablet 5 mg PO DAILY clopidogrel 75 mg Tablet 75 mg PO DAILY divalproex 500 mg Tablet,Delayed Release (Dr/Ec) 1,000 mg PO HS divalproex 500 mg Tablet,Delayed Release (Dr/Ec) 500 mg PO AM famotidine 20 mg Tablet 20 mg PO BID buspirone 10 mg Tablet 10 mg PO TID aspirin 81 mg Tablet,Chewable 81 mg PO DAILY mirtazapine 15 mg Tablet 15 mg PO HS fenofibrate 150 mg Capsule 150 mg PO DAILY Referrals Follow up/Referrals: Provider,Referral, MD [Primary Care Provider] - See instructions Activity Restrictions/Add. Instructions Additional Instructions/Restrictions: You were evaluated in the ER for concerns of medication side effect. I have changed your antibiotics. STOP the doxycycline START the azithromycin and amoxicillin-clavulanate which has been prescribed. Do not skip doses, do not stop taking this early. This will treat your pneumonia. Continue all other home medications as previously prescribed. Return to the ER with new, worsening, or otherwise concerning symptoms. Clinical Impressions Clinical Impression: Side effect of drug Discharge ED Provider: Esperanza Barrientos Adult [facility] General Chief complaint: Recheck/Abnormal Lab/Rx Stated complaint: recheck Time Seen by Provider: 03/26/23 01:44 Mode of Arrival: EMS Source of Information: Patient Limitations: No Limitations Description of Symptoms (Recalled from ER Triage Doc. by RN): Patient wants a different abx than the one she was put on because it hurt her chest, pancreas and liver History of Present Illness HPI narrative: 58-year-old female who is a resident of [facility] with a history of CAD, stents on Plavix and aspirin, COPD with recent exacerbation placed on doxycycline after an ER visit 5 days ago presents to the ER with concerns of medication side effects. Patient states when she received 1 dose of doxycycline in the ER when she visited here last week it caused her some mild discomfort in her chest but she did not say anything about it. She states [facility] started giving her the medication again 2 nights ago and each time she has taken it has given her belly pain. She states she has never gotten along well with doxycycline. Patient also expresses concern that she may not be getting the right medications and does not think she is getting Plavix. In reviewing her medication list, clopidogrel is still listed as active. Patient also complains of itching and bug bites on her legs stating there are bedbugs at her living facility. Patient was brought to the ER by EMS after law enforcement had been called because she was refusing to go back inside the facility. Patient is completely oriented and states that the facility nurses are mean to her. She states she is completely asymptomatic at this time aside from itching on her legs from the bug bites. She states the pain after getting her antibiotic only lasts 30 minutes to an hour. Related Data Home Medications Medication Instructions Recorded Confirmed aspirin 81 mg chewable tablet 81 mg PO DAILY Heart Disease 11/10/22 11/10/22 atorvastatin 80 mg tablet 80 mg PO HS High Cholesterol 11/10/22 11/10/22 buspirone 10 mg tablet 10 mg PO TID Depression 11/10/22 11/10/22 clopidogrel 75 mg tablet 75 mg PO DAILY Antiplatelet 11/10/22 11/10/22 divalproex 500 mg tablet,delayed 1,000 mg PO HS Seizure 11/10/22 11/10/22 release divalproex 500 mg tablet,delayed 500 mg PO AM Seizure 11/10/22 11/10/22 release docusate calcium 240 mg capsule 240 mg PO HS Constipation 11/10/22 11/10/22 famotidine 20 mg tablet 20 mg PO BID Acid Reflux 11/10/22 11/10/22 fenofibrate 150 mg capsule 150 mg PO DAILY Hyperlipidemia 09/18/23 09/18/23 fluphenazine HCl 10 mg tablet 10 mg PO BID Schizophrenia 11/10/22 11/10/22 mirtazapine 15 mg tablet 15 mg PO HS Depression 11/10/22 11/10/22 olanzapine 5 mg tablet 5 mg PO DAILY Antipsychotic 11/10/22 11/10/22 Previous Rx's Medication Instructions Recorded albuterol sulfate 90 mcg/actuation 1 inh inhalation Q4H PRN shortness 03/20/23 breath activated powder inhaler of breath or wheezing #1 ea doxycycline hyclate 100 mg capsule 100 mg PO BID 14 days #28 caps 03/20/23 prednisone 50 mg tablet 50 mg PO DAILY 5 days #5 tabs 03/20/23 amoxicillin 875 mg-potassium 1 tab PO BID #14 tabs 03/26/23 clavulanate 125 mg tablet azithromycin 250 mg tablet See Rx Instructions PO .COMPLEX #6 03/26/23 tabs Allergies Allergy/AdvReac Type Severity Reaction Status Date / Time carbamazepine Allergy Unknown Unknown Verified 11/10/22 21:02 allergy reaction codeine Allergy Unknown Unknown Verified 11/10/22 21:02 allergy reaction hydrocodone Allergy Unknown Unknown Verified 11/10/22 21:02 allergy reaction oxycodone Allergy Unknown Unknown Verified 11/10/22 21:02 allergy reaction promethazine Allergy Unknown Unknown Verified 11/10/22 21:02 allergy reaction propoxyphene Allergy Unknown Unknown Verified 11/10/22 21:02 allergy reaction PFSH PFSH Disclaimer: The information contained in this section may have been updated after the patient was seen, as this information can be updated by other users. Medical History Anxiety Bipolar 2 disorder, major depressive episode CAD (coronary artery disease) Constipation Depression GERD without esophagitis Hypercholesteremia Hyperlipidemia Schizo affective schizophrenia Smoker Surgical History H/O hysterectomy with oophorectomy History of cholecystectomy History of heart artery stent Hx of appendectomy Family History Other No significant family history Social History Smoking Status: Current every day smoker alcohol intake: former current occupational status: unemployed and disabled Travel in the last 8 weeks: None ROS Obtained: Yes All systems reviewed & no additional complaints except as documented Constitutional Constitutional: Denies chills, Denies fever(s), Denies headache(s) and Denies weakness Eyes Eyes: Denies change in vision ENT Ears, Nose, Mouth, and Throat: Denies dizziness, Denies headache(s), Denies nasal congestion and Denies sore throat Cardiovascular Cardiovascular: Denies chest pain, Denies dyspnea and Denies leg edema Respiratory Respiratory: Denies cough and Denies dyspnea Gastrointestinal Gastrointestingal: Reports abdominal pain; Denies constipation, diarrhea, nausea or vomiting Genitourinary Female Genitourinary: Denies dysuria Musculoskeletal Musculoskeletal: Denies arthralgias, Denies myalgias, Denies numbness and Denies tingling Integumentary/Breasts Skin/Breast: Denies change in pigmentation and Reports lesions (Few itching lesions/bug bites on the legs) Neurologic Neurologic: Denies dizziness, Denies headache(s), Denies numbness, Denies tingling and Denies weakness Physical Exam General General appearance: alert and in no apparent distress Head Head exam: atraumatic and normocephalic Eye Eye exam: Present PERRL and EOMI ENT ENT exam: Present mucous membranes moist Neck Neck exam: Present normal inspection and full ROM Chest Chest inspection: Present symmetric chest wall rise; Absent tenderness Respiratory Respiratory exam: Present wheezes (But good air movement); Absent respiratory distress, stridor or prolonged expiratory phase Cardiovascular Cardiovascular exam: Present regular rate and normal rhythm Abdominal Exam Abdominal exam: Present soft; Absent distention, tenderness, guarding or rebound Extremities Exam Extremities exam: Present full ROM; Absent tenderness or edema Neurological Exam Neurological exam: Present alert and oriented X3; Absent motor sensory deficit Psychiatric Psychiatric exam: Present normal affect and normal mood Skin Skin exam: Present warm, dry and other (3 punctate lesions on the left lower extremity, 2 by the ankle and 1 by the knee that patient states are itchy. No surrounding erythema or induration. Consistent with bedbug bites.) Medical Decision Making Ney Inquiry Pt receiving controlled substance: No Vital Signs: 03/26/23 01:33 03/26/23 02:01 03/26/23 02:04 Temperature 98.2 F Temperature Source Oral Pulse Rate 99 H Pulse Rate [Radial] 113 H 98 H Respiratory Rate 20 18 Blood Pressure 115/69 Blood Pressure [Left Arm] 137/82 Blood Pressure Mean [Left Arm] 100 Blood Pressure Source [Left Arm] Automatic Cuff 02 Sat by Pulse Oximetry 95 93 L 93 L Oxygen Delivery Method Room Air Room Air 03/26/23 02:05 Temperature 98.8 F Temperature Source Pulse Rate 94 H Pulse Rate [Radial] Respiratory Rate 18 Blood Pressure 115/69 Blood Pressure [Left Arm] Blood Pressure Mean [Left Arm] Blood Pressure Source [Left Arm] 02 Sat by Pulse Oximetry Oxygen Delivery Method Room Air Orders (Tests/Meds): ED MEDICATIONS Generic Name Dose Route Start Last Admin Trade Name Andrae PRN Reason Stop Dose Admin Amoxicillin/Clavulanate Potassium 1 each 03/26/23 02:00 Amoxicillin/Clavulanate Potassium 875/125mg Tablet PO 03/26/23 02:01 ONCE ONE Diphenhydramine HCl 25 mg 03/26/23 02:01 Diphenhydramine 25mg Capsule PO 03/26/23 02:02 ONCE ONE Medical Decision Narrative: In summary, this 58year old female presents to the emergency department today with concerns of medication side effect. On initial evaluation patient is hemodynamically stable, afebrile, saturating 93% on room air with wheezing throughout but good air movement, consistent with her known COPD which is comorbidity of current condition. She does have bug bites on her legs that are pruritic. Otherwise completely asymptomatic. Differential diagnosis includes but is not limited to medication side effect, pneumonia, bedbugs. Based on timing of patient's symptoms always associated with being administered her doxycycline, I do not have concerns for other pathology at this time especially since she is currently asymptomatic and vitals are stable. Patient has not yet completed an appropriate course of antibiotics to treat her recently diagnosed COPD exacerbation/pneumonia so she requires different antibiotics. She received 1 dose of Augmentin here since the pharmacy that her facility uses does not always deliver immediately, she also received 1 dose of Benadryl for itching due to bug bites. I reviewed recent labs which were otherwise reassuring and believe she is appropriate for discharge without further workup. Patient is completely oriented and though she is somewhat paranoid, she has no suicidal or homicidal ideations, she is behaving appropriately, and she is appropriate for discharge. I have prescribed Augmentin and azithromycin for outpatient management and gave explicit instructions to stop administering doxycycline due to side effects. Patient was given instructions on symptomatic management, follow up instructions, and return precautions for the emergency department. Patient indicated understanding and was discharged in stable condition. Of note, bedbugs were identified in the room after patient left. Critical Care Critical Care Time Critical Care Time: No
[2023-03-26 02:01] VITALS: BP 115/69; PULSE 99; O2SAT 93
[2023-03-26 02:04] VITALS: PULSE 98; RESP 18; O2SAT 93
[2023-03-26 02:05] VITALS: BP 115/69; PULSE 94; RESP 18; TEMP 37.1; O2SAT 94
[2023-03-26] MEDS: AMOXICILLIN/CLAVULANATE POTASSIUM 875/125MG TABLET 1 EACH PO (02:07)
[2023-03-26] MEDS: diphenhydrAMINE 25MG CAPSULE 25 MG PO (02:08)
--- NOTE | 2023-03-26 02:11 | PC.NURSE ---
released for transport to [place], [place].
== END 2023-03-26 02:11 | disposition home or self-care (01) ==
PROVIDERS: Emergency Provider Emergency Medicine
DX: R10.9 Unspecified abdominal pain (principal); T36.4X5A Adverse effect of tetracyclines, initial encounter; S80.861A Insect bite (nonvenomous), right lower leg, initial encounter; S80.862A Insect bite (nonvenomous), left lower leg, initial encounter; L29.9 Pruritus, unspecified; I25.10 Atherosclerotic heart disease of native coronary artery without angina pectoris; J44.9 Chronic obstructive pulmonary disease, unspecified; F25.0 Schizoaffective disorder, bipolar type; E78.5 Hyperlipidemia, unspecified; K21.9 Gastro-esophageal reflux disease without esophagitis; F17.200 Nicotine dependence, unspecified, uncomplicated; Z79.02 Long term (current) use of antithrombotics/antiplatelets; Z79.82 Long term (current) use of aspirin; W57.XXXA Bitten or stung by nonvenomous insect and other nonvenomous arthropods, initial encounter
CPT/HCPCS: 99283

== ENCOUNTER 2023-03-28 01:05 | Emergency (ER) | payer MEDICAID, SELFPAY ==
[2023-03-28 01:05] VITALS: BP 155/95; PULSE 114; RESP 20; TEMP 36.8; O2SAT 95; BMI 46.0
--- NOTE | 2023-03-28 01:07 | ED_ITS ---
Discharge Plan Disposition Patient Disposition: Home, Self-Care Prescriptions Prescriptions: New ondansetron HCl 4 mg tablet 4 mg PO Q8H PRN (Reason: nausea and vomiting) 5 Days Qty: 30 0RF diphenhydramine HCl [Allergy (diphenhydramine)] 25 mg capsule 25 mg PO Q8H PRN (Reason: itching) Qty: 30 0RF No Action doxycycline hyclate 100 mg capsule 100 mg PO BID 14 Days Qty: 28 0RF prednisone 50 mg tablet 50 mg PO DAILY 5 Days Qty: 5 0RF albuterol sulfate 90 mcg/actuation aerosol powdr breath activated 1 inh inhalation Q4H PRN (Reason: shortness of breath or wheezing) Qty: 1 0RF atorvastatin 80 mg Tablet 80 mg PO HS fluphenazine HCl 10 mg Tablet 10 mg PO BID docusate calcium 240 mg Capsule 240 mg PO HS olanzapine 5 mg Tablet 5 mg PO DAILY clopidogrel 75 mg Tablet 75 mg PO DAILY divalproex 500 mg Tablet,Delayed Release (Dr/Ec) 1,000 mg PO HS divalproex 500 mg Tablet,Delayed Release (Dr/Ec) 500 mg PO AM famotidine 20 mg Tablet 20 mg PO BID buspirone 10 mg Tablet 10 mg PO TID aspirin 81 mg Tablet,Chewable 81 mg PO DAILY mirtazapine 15 mg Tablet 15 mg PO HS fenofibrate 150 mg Capsule 150 mg PO DAILY amoxicillin-pot clavulanate 875-125 mg tablet 1 tab PO BID Qty: 14 0RF azithromycin 250 mg tablet See Rx Instructions .ROUTE .COMPLEX Qty: 6 0RF Rx Instructions: For 250 mg dose pack: take 500 mg today (day 1), then 250 mg for 4 days (days 2-5) Activity Restrictions/Add. Instructions Additional Instructions/Restrictions: The appearance of the bugs and the bites are consistent with bedbugs. This will require immediate eradication by your facility. If you develop a reaction and itching to the bites, recommend Benadryl as needed. Please take Zofran as needed for nausea and vomiting. Clinical Impressions Clinical Impression: Infestation by bed bug, Bed bug bite Instructions Patient Instructions: How to Get Rid of Bed Bugs, DI for Bed Bug Bites Discharge ED Provider: Usman Geiger General Adult HPI General Chief complaint: Skin/Abscess/Foreign Body Stated complaint: bug bite/infected Time Seen by Provider: 03/28/23 01:06 History of Present Illness HPI narrative: 58-year-old female, resident at [facility], history of schizophrenia presents with concern for bug bite. Patient arrived via EMS. Patient reports that she gets bites around her ankles, reports they are itchy. She brought a bug to the ER that appears consistent with bedbugs. She denies any other particular complaints at this time. Related Data Home Medications Medication Instructions Recorded Confirmed aspirin 81 mg chewable tablet 81 mg PO DAILY Heart Disease 11/10/22 11/10/22 atorvastatin 80 mg tablet 80 mg PO HS High Cholesterol 11/10/22 11/10/22 buspirone 10 mg tablet 10 mg PO TID Depression 11/10/22 11/10/22 clopidogrel 75 mg tablet 75 mg PO DAILY Antiplatelet 11/10/22 11/10/22 divalproex 500 mg tablet,delayed 1,000 mg PO HS Seizure 11/10/22 11/10/22 release divalproex 500 mg tablet,delayed 500 mg PO AM Seizure 11/10/22 11/10/22 release docusate calcium 240 mg capsule 240 mg PO HS Constipation 11/10/22 11/10/22 famotidine 20 mg tablet 20 mg PO BID Acid Reflux 11/10/22 11/10/22 fenofibrate 150 mg capsule 150 mg PO DAILY Hyperlipidemia 11/10/22 11/10/22 fluphenazine HCl 10 mg tablet 10 mg PO BID Schizophrenia 11/10/22 11/10/22 mirtazapine 15 mg tablet 15 mg PO HS Depression 11/10/22 11/10/22 olanzapine 5 mg tablet 5 mg PO DAILY Antipsychotic 11/10/22 11/10/22 Previous Rx's Medication Instructions Recorded albuterol sulfate 90 mcg/actuation 1 inh inhalation Q4H PRN shortness 03/20/23 breath activated powder inhaler of breath or wheezing #1 ea doxycycline hyclate 100 mg capsule 100 mg PO BID 14 days #28 caps 03/20/23 prednisone 50 mg tablet 50 mg PO DAILY 5 days #5 tabs 03/20/23 amoxicillin 875 mg-potassium 1 tab PO BID #14 tabs 03/26/23 clavulanate 125 mg tablet azithromycin 250 mg tablet See Rx Instructions PO .COMPLEX #6 03/26/23 tabs diphenhydramine HCl 25 mg capsule 25 mg PO Q8H PRN itching #30 caps 03/28/23 (Allergy (diphenhydramine)) ondansetron HCl 4 mg tablet 4 mg PO Q8H PRN nausea and 03/28/23 vomiting 5 days #30 tabs Allergies Allergy/AdvReac Type Severity Reaction Status Date / Time carbamazepine Allergy Unknown Unknown Verified 11/10/22 21:02 allergy reaction codeine Allergy Unknown Unknown Verified 11/10/22 21:02 allergy reaction hydrocodone Allergy Unknown Unknown Verified 11/10/22 21:02 allergy reaction oxycodone Allergy Unknown Unknown Verified 11/10/22 21:02 allergy reaction promethazine Allergy Unknown Unknown Verified 11/10/22 21:02 allergy reaction propoxyphene Allergy Unknown Unknown Verified 11/10/22 21:02 allergy reaction PFSH PFSH Disclaimer: The information contained in this section may have been updated after the patient was seen, as this information can be updated by other users. Medical History Anxiety Bipolar 2 disorder, major depressive episode CAD (coronary artery disease) Constipation Depression GERD without esophagitis Hypercholesteremia Hyperlipidemia Schizo affective schizophrenia Smoker Surgical History H/O hysterectomy with oophorectomy History of cholecystectomy History of heart artery stent Hx of appendectomy Family History Other No significant family history Social History Smoking Status: Current every day smoker alcohol intake: former current occupational status: unemployed and disabled Travel in the last 8 weeks: None ROS Obtained: Yes All systems reviewed & no additional complaints except as documented Physical Exam General General appearance: alert, in no apparent distress and obese Head Head exam: atraumatic and normocephalic Eye Eye exam: Present normal appearance, PERRL and EOMI ENT ENT exam: Present normal oropharynx and normal external ear exam Neck Neck exam: Present normal inspection and full ROM Chest Chest inspection: Present normal inspection and symmetric chest wall rise; Absent tenderness Respiratory Respiratory exam: Present normal lung sounds bilaterally; Absent respiratory distress Cardiovascular Cardiovascular exam: Present regular rate and normal rhythm Abdominal Exam Abdominal exam: Present soft; Absent distention, tenderness or guarding Extremities Exam Extremities exam: Present other (Punctate erythematous lesions over the ankles bilaterally that appear consistent with bedbug bites. They are not secondarily infected.) Back Exam Back exam: Present normal inspection; Absent tenderness Neurological Exam Neurological exam: Present alert and oriented X3; Absent motor sensory deficit Psychiatric Psychiatric exam: Present normal affect and normal mood Skin Skin exam: Present warm, dry and normal color Lymphatic Lymphatic Findings: no adenopathy Medical Decision Making Medical Records Medical records reviewed: Yes I reviewed the patient's medical records. Ney Inquiry Pt receiving controlled substance: No Ney was queried for this patient: No Vital Signs: 03/28/23 01:05 Temperature 98.3 F Temperature Source Oral Pulse Rate [Left Radial] 114 H Respiratory Rate 20 Blood Pressure [Right Arm] 155/95 H Blood Pressure Mean [Right Arm] 115 Blood Pressure Source [Right Arm] Automatic Cuff Blood Pressure Position [Right Arm] Sitting 02 Sat by Pulse Oximetry 95 Oxygen Delivery Method Room Air Lab Data Lab results reviewed: Yes I reviewed the patient's lab results. Medical Decision Narrative: 58-year-old female with history of schizoaffective disorder and COPD presents with concern for bedbugs. Patient arrives via EMS in the middle of the night. History was obtained via conversation with patient, EMS. On arrival, patient is [afebrile, hemodynamically stable, satting appropriately, alert, oriented x4, GCS 15], moving all extremities spontaneously. Full physical exam performed and significant for punctate erythematous lesions over the ankles bilaterally that are consistent with bedbug bites that are not secondarily infected. Differential includes but is not limited to bedbugs, excoriations, abscess, cellulitis. Given patient history, exam and workup, patient's presentation most likely represents bedbug infestation without secondary infection. Patient was discharged with prescription for Benadryl as needed for itching as well as Zofran per patient request. Vadim oneil will need to do an extermination for bedbugs in order to solve this issue. Care complicated by social determinants of health including psychiatric health, housing instability. Procedures Risk/Benefits of Procedure(s) Were Explained: Yes Critical Care Critical Care Time Critical Care Time: No
[2023-03-28 01:37] VITALS: BP 155/95; PULSE 103; RESP 19; TEMP 36.7; O2SAT 96
== END 2023-03-28 01:39 | disposition home or self-care (01) ==
LOC: ER 01:24
PROVIDERS: Emergency Provider Emergency Medicine; PCP Nurse Practitioner Acute Care
DX: S90.561A Insect bite (nonvenomous), right ankle, initial encounter (principal); S90.562A Insect bite (nonvenomous), left ankle, initial encounter; I25.10 Atherosclerotic heart disease of native coronary artery without angina pectoris; K21.9 Gastro-esophageal reflux disease without esophagitis; E78.5 Hyperlipidemia, unspecified; F25.0 Schizoaffective disorder, bipolar type; F17.200 Nicotine dependence, unspecified, uncomplicated; W57.XXXA Bitten or stung by nonvenomous insect and other nonvenomous arthropods, initial encounter
CPT/HCPCS: 99283

== ENCOUNTER 2023-05-06 19:53 | Emergency (ER) | payer MEDICAID, SELFPAY ==
[2023-05-06 20:05] VITALS: BP 171/81; PULSE 105; RESP 18; TEMP 36.7; O2SAT 92
== END 2023-05-06 20:07 | disposition home or self-care (01) ==
LOC: ER 20:00
PROVIDERS: Emergency Provider Student in an Organized Health Care Education/Training Program; PCP Nurse Practitioner Acute Care
DX: R06.02 Shortness of breath (principal); R00.0 Tachycardia, unspecified; N18.9 Chronic kidney disease, unspecified; Z87.891 Personal history of nicotine dependence; R05.9 Cough, unspecified
CPT/HCPCS: 71045; 80053; 84484; 85025; 85378; 96360; 99285

== ENCOUNTER 2023-05-15 23:09 | Emergency (ER) | payer MEDICAID, SELFPAY ==
[2023-05-15 23:13] VITALS: BP 141/86; PULSE 110; RESP 16; TEMP -17.7; TEMP 0; O2SAT 91; BMI 39.4
--- NOTE | 2023-05-15 23:39 | XR_ITS ---
PROCEDURE INFORMATION: Exam: XR Chest Exam date and time: 05/15/2023 11:39 PM Age: 58 years old Clinical indication: Smoker's cough TECHNIQUE: Imaging protocol: Radiologic exam of the chest. Views: 1 view. COMPARISON: CR XR CHEST 2V 03/20/2023 7:13 PM FINDINGS: Lungs: There are extensive tiny nodular opacities throughout both lungs which are nonspecific but for which CT examination is recommended. Pleural spaces: No large effusion or pneumothorax. Heart/Mediastinum: No evidence of mediastinal widening or cardiac silhouette enlargement; the mediastinum and heart appear within normal limits for contour and size. Bones/joints: No evidence of acute osseous abnormalities within the visualized portions of the thoracic spine and ribs. Osseous structures appear appropriate for patient age. IMPRESSION: There are extensive tiny nodular opacities throughout both lungs which are nonspecific but for which CT examination is recommended.
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
[2023-05-15 23:48] LABS: Appearance,Urine CLEAR (Clear); Bilirubin,Urine Negative (Negative); Blood, Urine Negative (Negative); Color,Urine YELLOW (Yellow); Glucose,Urine (UA) Negative (Negative); Ketones,Urine Negative (Negative); Leukocyte Esterase,Urine Negative (Negative); Microscopic, Urine URINE MICROSCOPIC (MICROSCOPIC); Nitrate,Urine Negative (Negative); PH,Urine 6.5 (5.0-8.5); Protein,Urine Negative (Negative); Specific Gravity, Urine <= 1.005 (1.005-1.030); Urobilinogen,Urine 0.2 EU/dl (0.2)
[2023-05-16 00:04] LABS: Cocaine Screen,Urine Negative ng/ml (<300); Methadone Screen,Urine Negative ng/ml (<300); Opiate Screen,Urine Negative ng/ml (<300); Phencyclidine Screen,Urine Negative ng/ml (<25)
[2023-05-16 00:05] LABS: Squamous Epithelial Cell,Urine Occasional #/hpf (0-5); WBC,Urine Occasional #/hpf (0-3)
[2023-05-16 00:08] LABS: Amphetamine/Metha Screen,Urine Negative ng/ml (<1000); Barbiturates Screen,Urine Negative ng/ml (<200); Benzodiazepines Screen,Urine Negative ng/ml (<200); Cannabinoid Screen,Urine Negative ng/ml (<50)
[2023-05-16 00:30] VITALS: BP 165/103; PULSE 108; RESP 16; TEMP -17.7; TEMP 0; O2SAT 94
== END 2023-05-16 00:41 ==
PROVIDERS: Emergency Provider Emergency Medicine
DX: R41.82 Altered mental status, unspecified (principal); F25.0 Schizoaffective disorder, bipolar type; F41.9 Anxiety disorder, unspecified; I25.10 Atherosclerotic heart disease of native coronary artery without angina pectoris; K21.9 Gastro-esophageal reflux disease without esophagitis; E78.5 Hyperlipidemia, unspecified; F17.200 Nicotine dependence, unspecified, uncomplicated; R05.9 Cough, unspecified; J44.9 Chronic obstructive pulmonary disease, unspecified; T76.21XA Adult sexual abuse, suspected, initial encounter
CPT/HCPCS: 71045; 80307; 81001; 99284